=== PATIENT | female | born 1995 | race Caucasian/White ===

== ENCOUNTER 2016-04-26 16:11 | Emergency (ER) | payer SELFPAY ==
[~2016-04-26] VITALS: Ht 165.1 cm; Wt 83.1 kg
[~2016-04-26 16:11] MED LIST: LORTAB 5/500 501 TAB PO; NO HOME MEDICATIONS; PROAIR HFA0.09 MG/AC IH; SEROQUEL25 MG PO; TYLENOL/CODEINE1 ML PO; ZITHROMAX 250M250 MG PO
[2016-04-26] MEDS ORDERED: CEPHALEXIN500 M1 PO (16:37)
[2016-04-26] MEDS ORDERED: BACTRIM DS 8001 TAB PO (16:37)
[2016-04-26 17:21] VITALS: BP 107/73; PULSE 88; TEMP 98.6
== END 2016-04-26 17:33 | disposition home or self-care (01) ==
LOC: COL.ER 16:11
DX: N61.0 Mastitis without abscess (principal)

== ENCOUNTER 2016-06-22 11:35 | Emergency (ER) | payer SELFPAY ==
[~2016-06-22] VITALS: Ht 165.1 cm; Wt 79.5 kg
[~2016-06-22 11:35] MED LIST changes: +BACTRIM DS 8001 TAB PO; +CEPHALEXIN500 M1 PO
[2016-06-22 11:39] VITALS: BP 137/83
[2016-06-22 12:37] VITALS: TEMP 98.1
[2016-06-22] MEDS ORDERED: NORCO 325 MG-51 TAB PO (13:45)
[2016-06-22 14:06] VITALS: PULSE 85
== END 2016-06-22 14:07 | disposition home or self-care (01) ==
LOC: COL.ER 11:35
DX: S86.112A Strain of other muscle(s) and tendon(s) of posterior muscle group at lower leg level, left leg, initial encounter (principal); X50.1XXA Overexertion from prolonged static or awkward postures, initial encounter; W50.0XXA Accidental hit or strike by another person, initial encounter; Y92.009 Unspecified place in unspecified non-institutional (private) residence as the place of occurrence of the external cause; F17.210 Nicotine dependence, cigarettes, uncomplicated

== ENCOUNTER 2016-09-07 03:37 | Emergency (ER) | payer OTHER ==
[~2016-09-07] VITALS: Ht 162.6 cm; Wt 75.0 kg
[~2016-09-07 03:37] MED LIST changes: +NORCO 325 MG-51 TAB PO
[2016-09-07 03:40] VITALS: BP 139/91; PULSE 81; TEMP 98.2
[2016-09-07] MEDS ORDERED: CLEOCIN HCL300 MG PO (04:04)
[2016-09-07] MEDS ORDERED: NORCO 325 MG-7.1 TAB PO (04:04)
== END 2016-09-07 04:19 | disposition home or self-care (01) ==
LOC: COL.ER 03:37
DX: K08.89 Other specified disorders of teeth and supporting structures (principal); F17.200 Nicotine dependence, unspecified, uncomplicated

== ENCOUNTER 2016-09-07 13:51 | Emergency (ER) | payer OTHER ==
[~2016-09-07] VITALS: Ht 162.6 cm; Wt 75.0 kg
[~2016-09-07 13:51] MED LIST changes: +CLEOCIN HCL300 MG PO; +NORCO 325 MG-7.1 TAB PO
[2016-09-07 13:55] VITALS: TEMP 99.2
[2016-09-07 15:16] VITALS: BP 136/72; PULSE 70
== END 2016-09-07 15:18 | disposition home or self-care (01) ==
LOC: COL.ER 13:51
DX: K08.89 Other specified disorders of teeth and supporting structures (principal); F17.210 Nicotine dependence, cigarettes, uncomplicated

== ENCOUNTER 2019-09-25 07:41 | Emergency (ER) | payer OTHER ==
[~2019-09-25] VITALS: Ht 162.6 cm; Wt 95.5 kg
[2019-09-25 07:50] VITALS: BP 110/82; TEMP 98.8
[2019-09-25 08:45] VITALS: PULSE 100
== END 2019-09-25 08:45 | disposition home or self-care (01) ==
LOC: COL.ER 07:41
DX: S51.011A Laceration without foreign body of right elbow, initial encounter (principal); F17.210 Nicotine dependence, cigarettes, uncomplicated; W25.XXXA Contact with sharp glass, initial encounter; Y92.002 Bathroom of unspecified non-institutional (private) residence as the place of occurrence of the external cause

== ENCOUNTER 2020-10-16 05:37 | Emergency (ER) | payer SELFPAY ==
[~2020-10-16] VITALS: Ht 162.6 cm; Wt 97.7 kg
[2020-10-16 05:42] VITALS: TEMP 98.3
[2020-10-16] MEDS ORDERED: AMOXICILLIN 50500 MG PO (05:55)
[2020-10-16] MEDS ORDERED: NORCO 325 MG-51 TAB PO (05:55)
[2020-10-16 06:23] VITALS: BP 126/85; PULSE 68
== END 2020-10-16 06:24 | disposition home or self-care (01) ==
LOC: COL.ER 05:37
DX: K04.7 Periapical abscess without sinus (principal); F17.200 Nicotine dependence, unspecified, uncomplicated